=== PATIENT | male | born 1965 | race Caucasian/White ===

== ENCOUNTER 2016-08-21 15:54 | Emergency (ER) | payer BC ==
[2016-08-21 16:20] VITALS: BP 115/69
[2016-08-21] MEDS ORDERED: DOXYcycline CAP(*) 100 MG PO ONE (17:33)
--- NOTE | 2016-08-21 17:34 | ED ---
Skin Complaint - HPI Summary HPI Summary: 51 male presents with complaint of having a tick bite on his right inner thigh. Patient noticed the tick today 08/21/16 and removed tick on his own. He noticed that the redness around the bite has increased, and he wanted to be safe rather than sorry. He is unsure when he got the bite. States it could have been Sunday when he was out raking the leaves. Admits to the tick being alive upon removal. Patient has been bit by a tick in the past. 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 Denies seeing a bulls eye rash. Denies arthralgias, chest pain, headache and fever/chills. Denies discharge from wound. Did not notice tick bites in any other part of body. Does admit to pruritis, soreness and minimal swelling of the area. - History of Current Complaint Chief Complaint: UCSkin Time Seen by Provider: 08/21/16 17:21 Stated Complaint: TICK BITE Hx Obtained From: Patient Onset/Duration: Started Minutes Ago Timing: Constant Skin Location: Other: - inner R thigh Character: Pruritus, Redness, Painful Aggravating Symptom(s): Nothing Alleviating Symptom(s): Nothing Associated Signs & Symptoms: Rash Related History: Insect Bite/Sting - tick - Allergy/Home Medications Allergies/Adverse Reactions: Allergies Allergy/AdvReac Type Severity Reaction Status Date / Time No Known Allergies Allergy Verified 08/21/16 16:20 Home Medications: Home Medications Ascorbic Acid TAB* [Vitamin C TAB*] 2,000 mg PO DAILY 08/21/16 [History Confirmed 08/21/16] Garlic 1,000 mg PO DAILY 08/21/16 [History Confirmed 08/21/16] Misc Natural Products [Prostate Health] 1 cap PO DAILY 08/21/16 [History Confirmed 08/21/16] Multiple Vitamins W/ Minerals [Multivitamin Men] 1 tab PO DAILY 08/21/16 [ History Confirmed 08/21/16] Niacin ER TAB* [Niaspan ER TAB*] 500 mg PO DAILY 08/21/16 [History Confirmed 08/04] PMH/Surg Hx/FS Hx/Imm Hx Endocrine/Hematology History: Denies: Hx Diabetes Cardiovascular History: Denies: Hx Hypertension Musculoskeletal History: Reports: Other Musculoskeletal History Infectious Disease History: No Infectious Disease History: Denies: Traveled Outside the [place] in Last 30 Days - Family History Known Family History: Positive: None - Social History Alcohol Use: Daily Alcohol Amount: wine Substance Use Type: Reports: Marijuana Substance Use Comment - Amount & Last Used: occ usage Smoking Status (MU): Former Smoker Type: Cigarettes, Pipe, Smokeless Tobacco Have You Smoked in the Last Year: No Review of Systems Constitutional: Negative Eyes: Negative ENT: Negative Cardiovascular: Negative Respiratory: Negative Gastrointestinal: Negative Genitourinary: Negative Musculoskeletal: Negative Positive: Rash, Other - tick bite R inner thigh, redness and pruritis/soreness Neurological: Negative Psychological: Normal All Other Systems Reviewed And Are Negative: Yes Physical Exam Triage Information Reviewed: Yes Vital Signs On Initial Exam: Initial Vitals Temp Pulse Resp BP Pulse Ox 98.9 F 79 14 115/69 97 08/21/16 16:10 08/21/16 16:10 08/21/16 16:10 08/21/16 16:10 08/21/16 16:10 Vital Signs Reviewed: Yes Appearance: Positive: Well-Appearing, No Pain Distress, Well-Nourished Skin: Positive: Warm, Skin Color Reflects Adequate Perfusion, Erythema @ - right inner thigh from tick bite. erythema surrounding bite approximately 2cm by 2 cm. tender without discharge. no sign of erythema migrans. no sign of tick bites anywhere else on body Head/Face: Positive: Normal Head/Face Inspection Eyes: Positive: Conjunctiva Clear ENT: Positive: Normal ENT inspection, Hearing grossly normal Neck: Positive: Supple, Nontender Respiratory/Lung Sounds: Positive: Clear to Auscultation, Breath Sounds Present Cardiovascular: Positive: Normal, RRR, Pulses are Symmetrical in both Upper and Lower Extremities Musculoskeletal: Positive: Normal, Strength/ROM Intact Neurological: Positive: Normal, Sensory/Motor Intact, Alert, Oriented to Person Place, Time, CN Intact II-III, Reflexes Intact, NV Bundle Intact Distally, Normal Gait Diagnostics - Vital Signs Vital Signs Temp Pulse Resp BP Pulse Ox 08/21/16 16:10 98.9 F 79 14 115/69 97 - Laboratory Lab Statement: Any lab studies that have been ordered have been reviewed, and results considered in the medical decision making process. Course/Dx - Course Course Of Treatment: given doxycyline prophylaxis since bite was <72 hours. patient was educated on signs and symptoms to watch out for, for lyme disease. aware of worsening signs and symptoms. follow up - Differential Diagnoses - Skin Complaint Differential Diagnoses: Cellulitis, Contact Dermatitis, Tick Born Illness, Tinea , Other - Diagnoses Provider Diagnoses: Tick bite Discharge - Discharge Plan Condition: Stable Disposition: HOME Patient Education Materials: Tick Bite (ED), Lyme Disease (ED) Referrals: No Primary Care Phys,NOPCP [Primary Care Provider] - [facility] [place] [facility] [place]] Additional Instructions: Watch tick bite as we discussed for the erythema migrans "bullseye" rash. If you develop this you may need to have further testing and treatment for Lyme Disease. I have printed instructions and things to look out for, for Lyme Disease. Follow up and have your pcp look at it at your appointment on Sunday. Use an anti-itch topical cream or oral benedryl before bedtime for itching of the area.
== END 2016-08-21 17:43 | disposition home or self-care (01) ==
LOC: UCCORT 15:54
DX: S70.361A Insect bite (nonvenomous), right thigh, initial encounter (principal); W57.XXXA Bitten or stung by nonvenomous insect and other nonvenomous arthropods, initial encounter; Y93.9 Activity, unspecified; Y92.9 Unspecified place or not applicable; Z87.891 Personal history of nicotine dependence
CPT/HCPCS: 99202; A9270-GY; G0463

== ENCOUNTER 2016-10-13 10:49 | Emergency (ER) | payer BC ==
[2016-10-13 12:09] VITALS: BP 114/72
--- NOTE | 2016-10-13 12:29 | UC ---
Ear Complaint HPI - HPI Summary HPI Summary: ONSET OF RIGHT EAR PAIN YESTERDAY. NO COUGH OR CONGESTION. NO FEVER. FEELS LIKE HE HAS SOME PND. FEELS LIKE THERE IS WATER IN HIS EAR. - History of Current Complaint Chief Complaint: UCEar Stated Complaint: POSS EAR INFECTION Time Seen by Provider: 10/13/16 12:19 Hx Obtained From: Patient Onset/Duration: Gradual Onset, Lasting Hours, Still Present Severity Initially: Mild Severity Currently: Mild Pain Intensity: 2 Pain Scale Used: 0-10 Numeric Aggravating Factors: Nothing Alleviating Factors: Nothing Associated Signs/Symptoms: Negative: URI Symptoms - Allergies/Home Medications Allergies/Adverse Reactions: Allergies Allergy/AdvReac Type Severity Reaction Status Date / Time No Known Allergies Allergy Verified 10/13/16 12:04 PMH/Surg Hx/FS Hx/Imm Hx Previously Healthy: Yes Endocrine History Of: Denies: Diabetes Cardiovascular History Of: Denies: Hypertension - Surgical History Surgical History: None - Family History Known Family History: Positive: Cardiac Disease - Social History Alcohol Use: Daily Alcohol Amount: wine Substance Use Type: Marijuana Substance Use Comment - Amount & Last Used: 6 months ago Smoking Status (MU): Former Smoker Type: Cigarettes, Pipe, Smokeless Tobacco Have You Smoked in the Last Year: No Review of Systems Constitutional: Negative ENT: Ear Ache Respiratory: Negative Cardiovascular: Negative Gastrointestinal: Negative All Other Systems Reviewed And Are Negative: Yes Physical Exam Triage Information Reviewed: Yes Appearance: Well-Appearing, No Pain Distress, Well-Nourished Vital Signs: Initial Vital Signs Temp 97.9 F 10/13/16 12:05 Pulse 89 10/13/16 12:05 Resp 16 10/13/16 12:05 BP 114/72 10/13/16 12:05 Pulse Ox 97 10/13/16 12:05 Vital Signs Reviewed: Yes Eyes: Positive: Conjunctiva Clear ENT: Positive: Hearing grossly normal, Pharynx normal, TMs normal Neck: Positive: Supple, Nontender, No Lymphadenopathy Respiratory Exam: Normal Cardiovascular Exam: Normal Abdomen Description: Positive: Soft Musculoskeletal: Positive: No Edema Neurological: Positive: Alert Psychological: Positive: Age Appropriate Behavior Skin: Negative: rashes Ear Complaint Course/Dx - Differential Dx/Diagnosis Provider Diagnoses: RIGHT OTALGIA Discharge - Discharge Plan Condition: Stable Disposition: HOME Patient Education Materials: Earache (ED) Referrals: Virgilio Gasca MD [Medical Doctor] - If Needed Additional Instructions: NO SIGN OF INFECTION ON EXAM TODAY. IF YOUR SYMPTOMS DO NOT IMPROVE OVER THE NEXT 1-2 WEEKS FOLLOW-UP WITH AN ENT. DR. GASCA IS HERE IN [place] BUT YOU MAY ALSO SEE SOMEONE LOCALLY IN [place] WHERE YOU LIVE. DRS. GONZALEZ AND ZAIDA WITH [facility] ALSO COME TO [place] ON CERTAIN DAYS. PLEASE CALL THEM AT THE FOLLOWING NUMBER TO SCHEDULE AN APPT. [phone]
== END 2016-10-13 12:51 | disposition home or self-care (01) ==
LOC: UCCORT 10:49
DX: H92.01 Otalgia, right ear (principal); F12.90 Cannabis use, unspecified, uncomplicated; Z87.891 Personal history of nicotine dependence
CPT/HCPCS: 99211; G0463